=== PATIENT | male | born 1965 | race Caucasian/White ===

== ENCOUNTER 2016-10-10 12:29 | Emergency (ER) | payer OTHER ==
[~2016-10-10] VITALS: Ht 152.4 cm; Wt 81.6 kg
[~2016-10-10 12:29] MED LIST: ADVAIR 250/501 DISK IH; AMLOD-VALSA-HC1 EAC2 PO; ASPIR-LOW81 MG PO; ATENOLOL-CHLOR1 EAC1 PO; ATORVASTATIN CA80 MG PO; CELEBREX200 MG PO; Combivent IH; DUONEB 2.5-0.5 M3 ML AEROSOL; DuoNeb IH; GLUCOPHAGE XR1000 MG PO; Glucotrol PO; HUMALOG100 UNIT/1 SC; Habitrol,Nicoderm CQ TD; JANUVIA PO; LANTUS 3 M100 UNITS1 SC; Levaquin PO; METOPROLOL SUC100 MG PO; MOTRIN600 MG PO; NITROSTAT0.4 MG SL; NORCO 5/3251 TABLET PO; NORVASC5 MG PO; OMEPRAZOLE20 MG PO; PAXIL30 MG PO; PERCOCET 5-3251 EACH PO; PERCOCET 5/31 TABLET PO; PLAVIX75 MG PO; POTASSIUM CHLO20 ME1 PO; PROTONIX40 MG PO; SIMVASTATIN80 M1 PO; TRADJENTA5 MG PO; TRICOR145 MG PO; TRIGENTA PO; Tenormin PO; Ultram PO; Vicodin,Norco 5/325 PO; XANAX1 MG PO; Xanax PO; ZITHROMAX Z-PA250 MG PO; ZITHROMAX500 MG PO; Zocor PO; [UNRECOGNIZED DRUG - CODE]; predniSONE PO
[2016-10-10 12:51] LABS: POINT-OF-CARE METER ID UU13113778
[2016-10-10 14:44] LABS: HEMATOCRIT 48.8 % (38.0-50.0); MCH 29.4 PG (29.0-34.0); MCV 89.2 FL (86-99); MEAN PLAT.VOLUME 9.2 uM^3 (9.0-12.4); PLATELET COUNT 342 K/uL (156-360); RBC DIS.WIDTH-SD 42.7 % (39-53); RED BLOOD COUNT 5.47 M/uL (4.00-5.50); WHITE BLOOD COUNT 10.9 K/uL (4.1-10.2)
[2016-10-10 14:49] LABS: ADD MEDTOX COMMENT Y; AMPHETAMINE NEGATIVE (500 ng/mL); BARBITURATES NEGATIVE (200 ng/mL); BENZODIAZEPINES PRESUMPTIVE POSITIVE (150 ng/mL); COCAINE NEGATIVE (150 ng/mL); INTERNAL CONTROLS VALID? YES; METHADONE NEGATIVE (200 ng/mL); METHAMPHETAMINE NEGATIVE (500 ng/mL); OPIATES (MORPHINE) NEGATIVE (100 ng/mL); OXYCODONE NEGATIVE (100 ng/mL); PHENCYCLIDINE NEGATIVE (25 ng/mL); PROPOXYPHENE NEGATIVE (300 ng/mL); THC CANNABINOIDS PRESUMPTIVE POSITIVE (50 ng/mL); TRICYCLIC ANTIDEPRESSANTS NEGATIVE (300 ng/mL)
[2016-10-10 14:56] LABS: CHLORIDE 103 mEq/L (99-109); POTASSIUM 3.8 mEq/L (3.7-5.4); SODIUM 140 mEq/L (136-147)
[2016-10-10 14:58] LABS: GLUCOSE 181 mg/dL (70-99)
[2016-10-10 14:59] LABS: ANION GAP 20 MEQ/L (2-14)
[2016-10-10 15:01] LABS: GFR ESTIMATE (CALCULATED) 45 mL/min/; SERUM ETHYL ALCOHOL < 10 mg/dL
[2016-10-10 15:03] LABS: UREA NITROGEN (BUN) 26 mg/dL (9-23)
[2016-10-10 15:05] LABS: SALICYLATE < 5.0 MG/DL (15-30)
[2016-10-10 16:04] LABS: BENZODIAZEPINES, URINE SCREEN POSITIVE (200 ng/mL)
[2016-10-10 16:09] VITALS: BP 163/90
== END 2016-10-10 16:10 | disposition home or self-care (01) ==
LOC: EME 12:29
PROVIDERS: Emergency Medicine
DX: F33.1 Major depressive disorder, recurrent, moderate (principal); F20.9 Schizophrenia, unspecified; F12.20 Cannabis dependence, uncomplicated; E78.5 Hyperlipidemia, unspecified; I10 Essential (primary) hypertension; E11.9 Type 2 diabetes mellitus without complications; Z87.442 Personal history of urinary calculi; Z85.47 Personal history of malignant neoplasm of testis; Z95.1 Presence of aortocoronary bypass graft; Z79.4 Long term (current) use of insulin; Z72.0 Tobacco use
CPT/HCPCS: 80048; 82948; 84999; 85027; 90839; 99281; 99283; G0480

== ENCOUNTER 2017-10-20 13:54 | Emergency (ER) | payer OTHER ==
[~2017-10-20] VITALS: Ht 157.5 cm; Wt 77.4 kg
[2017-10-20 15:23] VITALS: BP 00/00
== END 2017-10-20 15:22 | disposition left against medical advice (07) ==
LOC: EME 13:54
DX: M25.551 Pain in right hip (principal); M25.561 Pain in right knee; M25.571 Pain in right ankle and joints of right foot; M79.604 Pain in right leg; G89.29 Other chronic pain; Z53.20 Procedure and treatment not carried out because of patient's decision for unspecified reasons; I10 Essential (primary) hypertension; E78.5 Hyperlipidemia, unspecified; E11.9 Type 2 diabetes mellitus without complications; Z79.4 Long term (current) use of insulin; Z79.02 Long term (current) use of antithrombotics/antiplatelets; Z85.45 Personal history of malignant neoplasm of unspecified male genital organ; Z95.1 Presence of aortocoronary bypass graft; Z88.0 Allergy status to penicillin; Z72.0 Tobacco use
CPT/HCPCS: 99281; 99283

== ENCOUNTER 2017-10-27 15:18 | Emergency (ER) | payer OTHER ==
[~2017-10-27] VITALS: Ht 157.5 cm; Wt 86.4 kg
[2017-10-27 15:26] VITALS: BP 117/71
[2017-10-27] MEDS ORDERED: PREDNISONE10 M1 PO (18:58)
[2017-10-27] MEDS ORDERED: FLEXERIL10 MG PO (18:58)
== END 2017-10-27 19:10 | disposition home or self-care (01) ==
LOC: EME 15:18
PROVIDERS: Emergency Medicine
DX: M51.36 Other intervertebral disc degeneration, lumbar region (principal); F41.9 Anxiety disorder, unspecified; F32.9 Major depressive disorder, single episode, unspecified; F17.200 Nicotine dependence, unspecified, uncomplicated; Z88.0 Allergy status to penicillin
CPT/HCPCS: 72131; 82948; 99281; 99283; J1885

== ENCOUNTER 2018-02-06 10:31 | Inpatient (IN) | payer OTHER ==
[~2018-02-06] VITALS: Ht 154.9 cm; Wt 75.1 kg
[~2018-02-06 10:31] MED LIST changes: +FLEXERIL10 MG PO; +PREDNISONE10 M1 PO
[2018-02-06 12:05] LABS: BASOPHIL (%) 0.5 % (0-1); BASOPHIL COUNT 0.1 K/uL (0-0.1); EOSINOPHIL (%) 2.3 % (0-5); EOSINOPHIL COUNT 0.2 K/uL (0-0.3); HEMATOCRIT 45.5 % (38.0-50.0); HEMOGLOBIN 16.1 G/DL (12.5-16.6); IMMATURE GRANULOCYTE (%) 0.2 % (0.0-0.7); LYMPHOCYTE (%) 24.3 % (15-42); LYMPHOCYTE COUNT 2.3 K/uL (1.0-2.8); MCH 30.3 PG (29.0-34.0); MCHC 35.4 G/DL (30.0-36.0); MCV 85.5 FL (86-99); MONOCYTE (%) 8.9 % (3-12); MONOCYTE COUNT 0.9 K/uL (0-0.8); NEUTROPHIL (%) 63.8 % (45-76); NEUTROPHIL COUNT 6.1 K/uL (1.8-6.4); RBC DIS.WIDTH-CV 12.2 % (11.8-14.6); RBC DIS.WIDTH-SD 37.8 % (39-53); RED BLOOD COUNT 5.32 M/uL (4.00-5.50); WHITE BLOOD COUNT 9.6 K/uL (4.1-10.2)
[2018-02-06 12:11] LABS: PLATELET COUNT 226 K/uL (156-360)
[2018-02-06 12:14] LABS: ALBUMIN 4.2 g/dL (3.2-4.8); CHLORIDE 95 mEq/L (99-109); POTASSIUM 3.6 mEq/L (3.7-5.4); SODIUM 133 mEq/L (136-147)
[2018-02-06 12:17] LABS: TOTAL PROTEIN 7.8 g/dL (6.4-8.3)
[2018-02-06 12:19] LABS: TOTAL BILIRUBIN 0.6 mg/dL (0.0-1.0)
[2018-02-06 12:20] LABS: ALKALINE PHOSPHATASE 77 IU/L (3-129); SERUM ETHYL ALCOHOL < 10 mg/dL
[2018-02-06 12:21] LABS: CREATININE 1.8 mg/dL (0.6-1.3); GFR ESTIMATE (CALCULATED) 42 mL/min/ (58.99-99999)
[2018-02-06 12:22] LABS: AST (GOT) 24 IU/L (2-34); UREA NITROGEN (BUN) 22 mg/dL (9-23)
[2018-02-06 12:23] LABS: ALT (GPT) 35 IU/L (3-49)
[2018-02-06 12:59] LABS: GLUCOSE 528 mg/dL (70-99)
[2018-02-06 12:59] LABS: AMPHETAMINE NEGATIVE (500 ng/mL); BARBITURATES NEGATIVE (200 ng/mL); BENZODIAZEPINES NEGATIVE (150 ng/mL); BUPRENORPHINE NEGATIVE (10 ng/mL); COCAINE NEGATIVE (150 ng/mL); METHADONE NEGATIVE (200 ng/mL); METHAMPHETAMINE NEGATIVE (500 ng/mL); OPIATES (MORPHINE) NEGATIVE (100 ng/mL); OXYCODONE NEGATIVE (100 ng/mL); PHENCYCLIDINE NEGATIVE (25 ng/mL); PROPOXYPHENE NEGATIVE (300 ng/mL); THC CANNABINOIDS PRESUMPTIVE POSITIVE (50 ng/mL); TRICYCLIC ANTIDEPRESSANTS NEGATIVE (300 ng/mL)
[2018-02-06] MEDS ORDERED: ATENOLOL100 MG PO (17:07)
[2018-02-06] MEDS ORDERED: CHLORTHALIDONE25 MG PO (17:07)
[2018-02-06] MEDS ORDERED: AMLODIPINE BESYL5 MG PO (17:08)
[2018-02-06] MEDS ORDERED: PAROXETINE HCL30 MG PO (17:08)
[2018-02-06 17:13] VITALS: BP 125/71
[2018-02-07 07:48] VITALS: BP 126/63
[2018-02-07 16:13] VITALS: BP 118/67
[2018-02-08 07:53] VITALS: BP 117/67
[2018-02-08] MEDS ORDERED: ARIPIPRAZOLE5 MG PO (12:09)
== END 2018-02-08 13:42 | disposition home or self-care (01) | DRG 885 ==
LOC: EME 10:31 → EDOF 15:19 → ENRESERV 17:05 → 1WEST 17:05
PROVIDERS: Emergency Medicine; Psychiatry & Neurology Psychiatry
DX: F31.9 Bipolar disorder, unspecified (principal); F60.9 Personality disorder, unspecified; F12.20 Cannabis dependence, uncomplicated; R45.850 Homicidal ideations; R45.851 Suicidal ideations; I10 Essential (primary) hypertension; E78.5 Hyperlipidemia, unspecified; J43.9 Emphysema, unspecified; C62.90 Malignant neoplasm of unspecified testis, unspecified whether descended or undescended; F17.200 Nicotine dependence, unspecified, uncomplicated; E11.65 Type 2 diabetes mellitus with hyperglycemia; Z79.4 Long term (current) use of insulin; Z95.1 Presence of aortocoronary bypass graft
CPT/HCPCS: 71045; 80053; 82948; 84999; 85025; 90839; 99281; 99285; G0480; J1815